=== PATIENT | male | born 1975 | race Caucasian/White ===

== ENCOUNTER 2019-12-30 01:07 | Emergency (ER) | payer SELFPAY ==
[2019-12-30] MEDS ORDERED: Ondansetron PF 4 MG/2 ML Vial ONE (01:35)
[2019-12-30] MEDS ORDERED: Morphine 4 MG/ML VIAL ONE (01:35)
[2019-12-30 01:56] LABS: #Eosinphils 0.4 thou/uL (0.0-0.7); #Lymphocytes 1.7 thou/uL (1.20-3.40); #Monocytes 0.9 thou/uL (0.11-0.59); #Neutrophils 6.4 thou/uL (1.40-6.50); %Basophils 0.2 % (0.0-1.0); %Eosinophils 4.1 % (0.0-10.0); %Lymphocytes 18.4 % (21.0-51.0); %Monocytes 9.9 % (0.0-10.0); %Neutrophils 67.4 % (42.0-75.0); Hemoglobin 14.9 g/dL (14.0-18.0); Mean Corpuscular HGB CONC 33.1 g/dL (32.0-36.0); Mean Corpuscular Hemoglobin 31.6 pg (27.0-31.0); Mean Corpuscular Volume 95.5 fL (78.0-98.0); Mean Platelet Volume 8.7 fL (7.4-10.4); Platelet Count 209 thou/uL (130-400); RBC Distribution Width 12.4 % (11.5-14.5); White Blood Cell (WBC) Count 9.5 thou/uL (4.8-10.8)
[2019-12-30 02:18] LABS: ALT (SGPT) 118 U/L (8-55); AST (SGOT) 61 U/L (5-34); Albumin 4.2 g/dL (3.5-5.0); Alkaline Phosphatase 96 U/L (40-110); Anion Gap 13 mmol/L (10-20); BUN (Urea Nitrogen) 11 mg/dL (8.9-20.6); Bilirubin, Total 0.3 mg/dL (0.2-1.2); Calc. Creatinine Clearance 0 mL/min (70-130); Calcium 9.3 mg/dL (7.8-10.44); Carbon Dioxide 25 mmol/L (22-29); Chloride 100 mmol/L (98-107); Estimated GFR-MDRD Greater than 90; Globulin 4.3 g/dL (2.4-3.5); Glucose 102 mg/dL (70-105); Potassium 4.2 mmol/L (3.5-5.1); Protein, Total 8.5 g/dL (6.0-8.3); Sodium 134 mmol/L (136-145)
[2019-12-30 02:20] LABS: Bacteria/HPF None Seen HPF (None Seen); Bilirubin Negative (Negative); Blood, Urine Negative (Negative); Clarity Clear (Clear); Glucose, Urine (Dipstick) Normal (Negative); Ketone, Urine Negative (Negative); Leukocyte 75 Leu/uL (Negative); Nitrite Negative (Negative); Protein, Urine (Dipstick) Negative (Neg-Trace); RBC/HPF 0-3 HPF (0-3); Specific Gravity, Urine 1.014 (1.002-1.036); Sperm/HPF Rare HPF (None Seen); Squamous Epithelial None Seen HPF (0-3); Urobilinogen Normal mg/dL (Less than 2); WBC/HPF 21-50 HPF (0-3); pH, Urine 7.5 (5.0-9.0)
[2019-12-30] MEDS ORDERED: Ketorolac Tromethamine 30 MG/ML VIAL ONE (03:20)
[2019-12-30] MEDS ORDERED: Azithromycin 250 MG TAB ONE (03:20)
[2019-12-30] MEDS ORDERED: cefTRIAXone\\ROCEPHIN 250 MG VIAL ONE (03:20)
--- NOTE | 2019-12-31 11:41 | ULT ---
PRELIMINARY REPORT/DIRECT RADIOLOGY/EMERGENCY AFTER HOURS PROCEDURE: EXAM: US Scrotum. CLINICAL HISTORY: HX: SEVER RT TESTICLE PAIN X 3-4DAYS. SEE NOTES ON LAST IMAGE. THANKS TECHNIQUE: Real-time ultrasound of the scrotum with color Doppler and image documentation. COMPARISON: None provided. FINDINGS: RIGHT TESTICLE: No mass. Normal Doppler flow. Measures 3.7 x 2.9 x 3.0 cm LEFT TESTICLE: No mass. Normal Doppler flow. Measures 4.5 x 2.2 x 2.9 cm EPIDIDYMIDES: The LEFT epididymis appears normal however the RIGHT side appears enlarged, hypervascul ar and heterogeneous. SCROTUM: A right-sided hydrocele is noted. IMPRESSION: The findings are consistent with right-sided epididymitis with right-sided hydrocele ELECTRONICALLY SIGNED BY: Curt Jackson MD Dec 30, 2019 2:57:44 AM CDT FINAL REPORT EMERGENT AFTERHOURS TESTICULAR ULTRASOUND: 12/30/19 HISTORY: Severe right testicular pain for three to four days. IMPRESSION: 1. Normal appearing bilateral testicles with flow demonstrated in each testicle. 2. Enlargement and heterogeneity of the right epididymis with increased vascular flow suggesting right epididymitis. 3. Small right hydrocele. 4. Findings in agreement with preliminary report by direct radiology. POS: [facility]
[2019-12-31 18:59] LABS: Chlam.trachomatis by PCR,Urine Not Detected (NotDetected)
== END 2019-12-30 03:56 | disposition home or self-care (01) ==
LOC: ERS 01:07
DX: N45.1 Epididymitis (principal); Z87.891 Personal history of nicotine dependence
CPT/HCPCS: 76870; 80053; 81003; 81015; 85025; 87491; 87591; 93976; 96372; 96374; 96375; J0696; J1885; J2270; J2405